=== PATIENT | female | born 1950 | race Caucasian/White ===

== ENCOUNTER 2017-12-05 08:00 | Inpatient (IN) | payer OTHER ==
[~2017-12-05] VITALS: Ht 152.4 cm; Wt 72.6 kg
[2017-12-05] MEDS ORDERED: LOSARTAN-HCTZ1 EACH PO (09:37)
[2017-12-05] MEDS ORDERED: SIMVASTATIN20 MG PO (09:38)
[2017-12-05] MEDS ORDERED: VITAMIN D5000 UNIT PO (09:38)
[2017-12-05] MEDS ORDERED: SULINDAC200 MG PO (09:38)
[2017-12-14] MEDS ORDERED: XARELTO10 MG PO (15:35)
[2017-12-14] MEDS ORDERED: PERCOCET 5-3251 EACH PO (15:35)
[2017-12-14] MEDS ORDERED: DUI500 PO (15:35)
== END 2017-12-14 17:39 | disposition home or self-care (01) | DRG 470 ==
LOC: O/R 12-12 05:10 → SURH 12-12 05:10
PROVIDERS: Orthopaedic Surgery
PROC: 0QNF0ZZ Release Left Patella, Open Approach (ICD-10-PCS; 2017-12-12)
PROC: 0SRD0J9 Replacement of Left Knee Joint with Synthetic Substitute, Cemented, Open Approach (ICD-10-PCS; principal; 2017-12-12 17:00)
DX: M17.12 Unilateral primary osteoarthritis, left knee (principal); D62 Acute posthemorrhagic anemia; M22.12 Recurrent subluxation of patella, left knee; M81.0 Age-related osteoporosis without current pathological fracture

== ENCOUNTER 2019-01-07 08:45 | Inpatient (IN) | payer OTHER ==
[~2019-01-07] VITALS: Ht 162.6 cm; Wt 74.8 kg
[~2019-01-07 08:45] MED LIST: DUI500 PO; LOSARTAN-HCTZ1 EACH PO; PERCOCET 5-3251 EACH PO; SIMVASTATIN20 MG PO; SULINDAC200 MG PO; VITAMIN D5000 UNIT PO; XARELTO10 MG PO
[2019-01-07] MEDS ORDERED: NORVASC5 MG PO (09:38)
[2019-01-17] MEDS ORDERED: PERCOCET 5-3251 EACH PO (16:20)
[2019-01-17] MEDS ORDERED: CEFADROXIL500 MG PO (16:20)
[2019-01-17] MEDS ORDERED: ELIQUIS2.5 MG PO (16:20)
== END 2019-01-17 21:46 | disposition home or self-care (01) | DRG 470 ==
LOC: O/R 01-15 06:22 → SURG 01-15 06:22 → SURH 01-15 08:45 → SURG 01-15 19:30
PROVIDERS: ADMIT Orthopaedic Surgery
PROC: 0MNN0ZZ Release Right Knee Bursa and Ligament, Open Approach (ICD-10-PCS; 2019-01-15)
PROC: 0SRC0J9 Replacement of Right Knee Joint with Synthetic Substitute, Cemented, Open Approach (ICD-10-PCS; principal; 2019-01-15 14:30)
DX: M17.11 Unilateral primary osteoarthritis, right knee (principal); M80.00XA Age-related osteoporosis with current pathological fracture, unspecified site, initial encounter for fracture; D62 Acute posthemorrhagic anemia; M22.11 Recurrent subluxation of patella, right knee; I10 Essential (primary) hypertension